=== PATIENT | female | born 1985 | race American Indian/Alaskan Native ===

== ENCOUNTER 2019-01-16 09:47 | Outpatient (CLI) | payer MEDICAID ==
--- NOTE | 2019-01-16 10:53 | Mammography Report ---
Right mammogram and right breast ultrasound: The patient is breast-feeding. She has noticed a retroareolar lump since November which has slightly enlarged. This was not identified prior to her delivery. There is some periodic pain associated with this area. Routine imaging of the right breast with a marker demonstrates that the marker is in the retroareolar region slightly below the nipple. There is no obvious focal mass nor architectural distortion although the breast pattern is quite dense consistent with breast-feeding. Ultrasound over the area of concern in the 8:00 location adjacent to the nipple demonstrates a circumscribed mass which is elongated parallel to the skin and lying just below the skin level. It measures approximately 12 x 30 mm. It is slightly inhomogeneous. There is no distal enhancement nor shadowing. Color imaging does indicate internal flow. 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 Recommendation: Ultrasound-guided biopsy. BI-RADS CATEGORY: 4 = Suspicious ACR BI-RADS MAMMOGRAPHIC CODES: 0 = Needs additional imaging evaluation; 1 = Negative; 2 = Benign; 3 = Probably benign; 4 = Suspicious; 5 = Malignant; 6 = Known biopsy-proven malignancy COMMENT: 1. Dense breast tissue, i.e., adenosis, fibrocystic changes, etc., may obscure an underlying neoplasm. 2. Approximately 10% of cancers are not detected with mammography. 3. A negative mammography report should not delay biopsy if a clinically suspicious mass is present.
== END 2019-01-16 09:48 | disposition home or self-care (01) ==
LOC: US 09:47
PROVIDERS: ATTEND Obstetrics & Gynecology Gynecology
DX: N63.13 Unspecified lump in the right breast, lower outer quadrant (principal)